=== PATIENT | female | born 1960 | race Two or more races ===

== ENCOUNTER 2018-01-15 12:59 | Day surgery (SDC) | payer BC, OTHER ==
[2018-01-15] MEDS ORDERED: IV LACTATED RINGERS SOLUTION 1,000 ML BAG IV ONE (13:00)
[2018-01-15] MEDS ORDERED: PROPOFOL 200 MG/20 ML BOTTLE IV ONE (13:00)
[2018-01-15 13:37] LABS: *BILIRUBIN,URIN 1+ (NEGATIVE); *BLOOD, URINE 2+ (NEGATIVE); *CLARITY,URINE CLEAR (CLEAR); *COLOR,URINE YELLOW (YELLOW); *KETONES,URINE 2+ (NEGATIVE); *PROTEIN,URINE NEGATIVE (NEGATIVE); *UROBILINOGEN,URINE 0.2 E.U./dl (NORMAL); BASOPHILS % (AUTO) 0.5 % (0.0-2.0); EOSINOPHILS % (AUTO) 0.2 % (0.0-7.0); HEMATOCRIT 40.1 % (31.2-41.9); HEMOGLOBIN 13.6 g/dL (10.9-14.3); LEUKOCYTE ESTERASE ,URINE NEGATIVE (NEGATIVE); LYMPHOCYTES # (AUTO) 1.3 K/uL (20.0-40.0); LYMPHOCYTES % (AUTO) 28.2 % (20.5-51.5); MEAN CORPUSCULAR HEMOGLOBIN 31.6 uug (24.7-32.8); MEAN CORPUSCULAR HGB CONC 34 g/dL (32.3-35.6); MEAN CORPUSCULAR VOLUME 93.1 fL (75.5-95.3); MONOCYTES # (AUTO) 0.3 K/uL (2.0-10.0); MONOCYTES % (AUTO) 6.1 % (0.0-11.0); NITRITE, URINE NEGATIVE (NEGATIVE); PH,URINE 5.5 (5.0-8.0); PLATELET COUNT (AUTO) 183 K/uL (179-408); UGLUCOSE NEGATIVE (NEGATIVE); WHITE BLOOD COUNT (AUTO) 4.7 K/uL (3.8-11.8)
[2018-01-15 13:44] LABS: BACTERIA,URINE FEW /HPF (NONE SEEN); MUCUS,URINE MANY /LPF (0-FEW); POTASSIUM 3.7 mmol/L (3.5-5.1); SQUAMOUS EPITHELIAL CELL,UR FEW /HPF (NONE SEEN)
[2018-01-15 13:45] LABS: CREATININE 0.8 mg/dL (0.6-1.3)
[2018-01-15 13:50] LABS: BILIRUBIN,TOTAL 0.9 mg/dL (0.2-1.0); TOTAL PROTEIN, SERUM 7.7 g/dL (6.4-8.2)
[2018-01-15] MEDS ORDERED: MIDAZOLAM HCL 2 MG/2 ML VIAL ONE (15:39)
[2018-01-15] MEDS ORDERED: FENTANYL CITRATE 100 MCG/2 ML AMPUL ONE (15:40)
== END 2018-01-15 17:30 | disposition home or self-care (01) ==
LOC: DS 12:59
PROVIDERS: ATTEND Internal Medicine Gastroenterology
DX: K64.8 Other hemorrhoids (principal); Z80.0 Family history of malignant neoplasm of digestive organs; Z98.890 Other specified postprocedural states; Z79.899 Other long term (current) drug therapy
CPT/HCPCS: 36415; 45378; 71045; 80053; 81001; 85025; 85730; 93005; A4217; A4663; J2250; J3010; J3490; J7120 ×2

== ENCOUNTER 2018-03-08 06:08 | Day surgery (SDC) | payer BC, OTHER ==
[2018-03-08] MEDS ORDERED: IV LACTATED RINGERS SOLUTION 1,000 ML BAG IV ONE (06:09)
[2018-03-08] MEDS ORDERED: PROPOFOL 200 MG/20 ML BOTTLE IV ONE (06:09)
[2018-03-08] MEDS ORDERED: ONDANSETRON 4 MG/2 ML VIAL IV ONE (06:09)
[2018-03-08] MEDS ORDERED: LIDOCAINE HCL 2% 20 ML VIAL MC ONE (06:09)
[2018-03-08] MEDS ORDERED: CEFAZOLIN 50 ML IV ONE ×2 (06:16→06:22)
[2018-03-08] MEDS ORDERED: BUPIVACAINE 0.25% 30 ML VIAL ONE (07:12)
[2018-03-08] MEDS ORDERED: LIDOCAINE 1%-EPI 1:100,000 20 ML VIAL ONE (07:12)
[2018-03-08] MEDS ORDERED: ROCURONIUM BROMIDE 50 MG/5 ML VIAL ONE (07:17)
[2018-03-08] MEDS ORDERED: MIDAZOLAM HCL 2 MG/2 ML VIAL ONE (07:17)
[2018-03-08] MEDS ORDERED: FENTANYL CITRATE 100 MCG/2 ML AMPUL ONE (07:17)
[2018-03-08] MEDS ORDERED: SEVOFLURANE 250 ML BOTTLE ONE (07:27)
[2018-03-08] MEDS ORDERED: BUPIVACAINE PF 0.5% 30 ML VIAL ONE (08:00)
[2018-03-08] MEDS ORDERED: BACITRACIN 50,000 UNITS VIAL ONE (08:10)
== END 2018-03-08 10:15 | disposition home or self-care (01) ==
LOC: DS 06:08
PROVIDERS: ATTEND Surgery
DX: D36.7 Benign neoplasm of other specified sites (principal); M54.5 Low back pain
CPT/HCPCS: 11401 ×2; 11404; 12032; 88304; 88305; J0690 ×2; J2250; J2405; J3490 ×4; J7120 ×2; A4649; A4663; J3010